=== PATIENT | female | born 1995 | race Hispanic/Latino ===

== ENCOUNTER 2024-09-24 00:54 | Emergency (ER) | payer SELFPAY ==
[2024-09-24 01:00] VITALS: BP 141/79; PULSE 91; O2SAT 100
[2024-09-24 01:02] VITALS: BP 138/82; PULSE 91; RESP 16; TEMP 36.8; O2SAT 100; BMI 38.0
--- NOTE | 2024-09-24 01:04 | EKG_ITS ---
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
--- NOTE | 2024-09-24 01:10 | ED.CHESTPAIN ---
HPI - Chest Pain General Chief Complaint: Chest Pain Stated Complaint: chest pain Time Seen by Provider: 09/24/24 01:10 Source: patient Mode of arrival: Ambulatory Limitations: no limitations History of Present Illness HPI narrative: Patient is a 28-year-old female no significant past medical history presents into the ED for evaluation of left-sided chest pain, states it started spontaneously at around 11:00 a.m. when she got out of the shower, nothing making it better or worse states it is completely resolved at this time but was worried so decided come into the ED for further evaluation treatment. No trauma no falls not complaining of any other symptoms at this time. Review of Systems Review of Systems Narrative: General: Denies fever, chills, weight loss HEENT: Denies headache, eye drainage, eye irritation, head trauma, sore throat, voice change Cardiovascular: Positive chest pain, denies, palpitations, shortness of breath, tachycardia Respiratory: Denies any shortness of breath, cough, wheeze, stridor GI/: Denies any abdominal pain, nausea, vomiting, diarrhea, bright red blood per rectum, melanotic stools, urinary frequency, urinary retention, dysuria, hematuria MSK: Denies any joint pain, muscle pains, swelling Skin: Denies any rashes, lesions, discoloration Neuro: Denies any headache, lightheadedness, dizziness, fainting, weakness Psych: Denies SI/HI Patient History Social History Smoking Status: Current every day smoker Smoking Status: Current every day smoker Substance Use Type: does not use Exam Narrative Exam Narrative: General: Cooperative, comfortable, well-developed, not in acute distress HEENT: Normocephalic, atraumatic, PERRLA, normal sclera, eyelids normal, Neck: Active full range of motion, atraumatic Chest: Normal to inspection, negative crepitus, no overlying erythema ecchymosis Respiratory: Normal respiratory effort, not in acute respiratory distress, clear to auscultation bilaterally negative cough, wheeze, tachypnea, rhonchi, rales Cardiology: Regular rate rhythm negative gallop, murmur, rubs GI/: Normal to inspection, soft, nonrigid, no tenderness to palpation, exam deferred MSK: Full range of active range of motion of all 4 extremities, atraumatic Skin: No rashes lesions noted Neuro: Alert awake oriented x3, moves all 4 extremities spontaneously, cranial nerves intact, able to answer all questions appropriately follows commands appropriately Psych: Cooperative, negative suicidal or homicidal ideations Initial Vital Signs Initial Vital Signs: Vital Signs Temperature 98.2 F 09/24/24 01:02 Pulse Rate 91 H 09/24/24 01:02 Respiratory Rate 16 09/24/24 01:02 Blood Pressure 138/82 09/24/24 01:02 Pulse Oximetry 100 09/24/24 01:02 Oxygen Delivery Method Room Air 09/24/24 01:02 Course Orders Ordered: ED Orders 09/24/24 01:02 EKG-12 Lead Stat 09/24/24 01:15 XR chest 1V Stat 09/24/24 01:35 Complete Blood Count AUTO DIFF Stat Comprehensive Metabolic Panel Stat Lipase Stat Troponin & CK Cardiac Panel Stat Discontinued Medications Aspirin (Aspirin 81 Mg Chew Tab) 324 mg PO NOW ONE Stop: 09/24/24 01:16 Vital Signs Vital signs: Vital Signs - 8 hr 09/24/24 01:02 Temperature 98.2 F Pulse Rate 91 H Respiratory Rate 16 Blood Pressure 138/82 Pulse Oximetry 100 Oxygen Delivery Method Room Air MDM - Chest Pain Differential Diagnosis Differential diagnosis: Likely st elevation myocardial infarction, costochondritis, chest pain and other (Electrolyte abnormality, pneumonia) Lab Data 09/24/24 01:35 09/24/24 01:35 Labs: Lab Results 09/24/24 Range/Units 01:35 WBC 11.1 H (4.5-11.0) X10^3/uL RBC 4.93 (4.0-5.2) X10^6/uL Hgb 13.0 (12.0-16.0) g/dL Hct 39.6 (36-46) % MCV 80.4 (80-100) fL MCH 26.3 (26-34) PG MCHC 32.8 (30-36) % RDW 14.5 (11.6-14.8) % Plt Count 242 (150-400) X10^3/uL Neut % (Auto) 59.5 (50-75) % Lymph % (Auto) 33.7 (25-40) % [place]ley % (Auto) 5.6 (3-14) % Eos % (Auto) 0.9 L (2-4) % Baso % (Auto) 0.3 (0-2) % Neut # (Auto) 6600 (9543-9589) /uL Lymph # (Auto) 3800 (6718-0050) /uL Donley # (Auto) 600 (0-900) /uL Eos # (Auto) 100 (0-450) /uL Baso # (Auto) 0 (0-100) /uL Sodium 137 (137-145) mmol/L Potassium 3.7 (3.4-5.1) mmol/L Chloride 102 (98-107) mmol/L Carbon Dioxide 27 (22-32) mmol/L BUN 15 (7-17) mg/dL Creatinine 0.78 (0.52-1.04) mg/dL Estimated GFR > 60 (>60) mL/min BUN/Creatinine Ratio 19.2 (6-22) Glucose 110 H (70-100) mg/dL Calcium 9.5 (8.4-10.2) mg/dL Total Bilirubin 0.3 (0.2-1.3) mg/dL AST 22 (14-36) IU/L ALT 24 (<35) IU/L Alkaline Phosphatase 84 (38-126) U/L Total Creatine Kinase 64 (30-135) U/L Troponin I < 0.012 (0.01-0.034) ng/mL Total Protein 7.6 (6.3-8.2) g/dL Albumin 4.4 (3.5-5.0) g/dL Globulin 3.2 (1.7-4.1) g/dL Albumin/Globulin Ratio 1.4 (1.0-2.8) Lipase 53 (23-300) U/L Point of Care Testing Test Results Negative Urine Dip Bedside Urine Glucose Negative Bedside Urine Bilirubin - Negative Bedside Urine Ketone - Negative Urine Specific [place] 1.005 Bedside Urine Occult Blood - Negative Bedside Urine pH 7 Bedside Urine Protein - Negative Bedside Urine Urobilinogen - Negative Bedside Urine Nitrite - Negative Bedside Urine Leukocytes - Negative Esterase Imaging Data Chest x-ray: Radiologist's Impression: [address] [address] XRay Report Signed Patient: Glenda Dunham MR#: [id number] : 1995 Acct:[id number] Age/Sex: 28 / F Date of Service: 09/24/24 Loc: ED Accession Number: [id number] Procedure: XR chest 1V Ordering Provider: Natanael Figueroa D.O. PROCEDURE: XR CHEST 1V INDICATIONS: chest pain TECHNIQUE: One view of the chest was acquired. COMPARISON: None. FINDINGS: Surgical changes and devices: None. Lungs and pleura: Lungs are clear. No pleural effusions or pneumothorax. Mediastinum: Mediastinal contours appear normal. Heart size is normal. Bones and chest wall: No suspicious bony lesions. Overlying soft tissues appear unremarkable. IMPRESSION: No acute cardiopulmonary pathology. ECG Data Interpretation: EKG interpreted by ED physician sinus at 90 beats per minute, QTC 428, normal axis, nonspecific ST changes, no STEMI MDM Narrative Medical decision making narrative: Patient is a 28-year-old female with no significant past medical history presented for left-sided chest pain started at 11:00 p.m. earlier today. Describes it as sharp and shooting nothing making it better or worse pain has completely resolved at this time. Patient with a heart score of 0, patient with EKG nonischemic, troponin negative, patient will be safe for discharge home with outpatient follow up. She was instructed to follow up with primary care and Cardiology in outpatient setting, she verbalized understanding of this strict return precautions given she verbalized understanding of this and agrees to being discharged home with outpatient follow up. Discharge Plan Departure Patient Disposition: Home Clinical Impression: Chest pain Referrals: Baldemar Hendricks MD [Primary Care Provider] - Stand Alone Forms: Patient Portal/API/Survey
--- NOTE | 2024-09-24 01:15 | DI.RAD.S_ITS ---
PROCEDURE: XR CHEST 1V INDICATIONS: chest pain TECHNIQUE: One view of the chest was acquired. COMPARISON: None. FINDINGS: Surgical changes and devices: None. Lungs and pleura: Lungs are clear. No pleural effusions or pneumothorax. Mediastinum: Mediastinal contours appear normal. Heart size is normal. Bones and chest wall: No suspicious bony lesions. Overlying soft tissues appear unremarkable. IMPRESSION: No acute cardiopulmonary pathology. Dictated by: Trent Akers M.D. on 09/24/2024 at 1:58 Approved by: Trent Akers M.D. on 09/24/2024 at 1:58
[2024-09-24 01:23] VITALS: BP 135/61; PULSE 77; O2SAT 99
[2024-09-24 01:30] VITALS: BP 125/60; PULSE 84; O2SAT 99
[2024-09-24 01:47] LABS: Add Manual Diff / Slide Review NO; Basophils Absolute Auto 0 /uL (0-100); Basophils Percent Auto 0.3 % (0-2); Eosinophils Absolute Auto 100 /uL (0-450); Eosinophils Percent Auto 0.9 % (2-4); Hematocrit 39.6 % (36-46); Lymphocytes Absolute Auto 3800 /uL (1100-4500); Lymphocytes Percent Auto 33.7 % (25-40); Mean Corpuscular HGB Conc 32.8 % (30-36); Mean Corpuscular Hemoglobin 26.3 PG (26-34); Mean Corpuscular Volume 80.4 fL (80-100); Monocytes Absolute Auto 600 /uL (0-900); Monocytes Percent Auto 5.6 % (3-14); Neutrophils Absolute Auto 6600 /uL (1500-7000); Neutrophils Percent Auto 59.5 % (50-75); Platelet Count 242 X10^3/uL (150-400); Red Blood Cell Count 4.93 X10^6/uL (4.0-5.2); Red Cell Distribution Width 14.5 % (11.6-14.8); White Blood Cell Count 11.1 X10^3/uL (4.5-11.0)
[2024-09-24 01:58] LABS: Alanine Aminotransferase 24 IU/L (<35); Albumin 4.4 g/dL (3.5-5.0); Albumin Globulin Ratio 1.4 (1.0-2.8); Alkaline Phosphatase 84 U/L (38-126); Aspartate Aminotransferase 22 IU/L (14-36); BUN Creatinine Ratio 19.2 (6-22); Bilirubin Total 0.3 mg/dL (0.2-1.3); Blood Urea Nitrogen 15 mg/dL (7-17); Calcium 9.5 mg/dL (8.4-10.2); Carbon Dioxide 27 mmol/L (22-32); Chloride 102 mmol/L (98-107); Creatine Kinase 64 U/L (30-135); Estimated Glomerular Filt Rate > 60 mL/min (>60); Globulin 3.2 g/dL (1.7-4.1); Glucose 110 mg/dL (70-100); HEMOLYSIS < 15 (0-50); Lipase 53 U/L (23-300); Potassium 3.7 mmol/L (3.4-5.1); Sodium 137 mmol/L (137-145); Total Protein 7.6 g/dL (6.3-8.2)
[2024-09-24 02:10] LABS: Troponin I < 0.012 ng/mL (0.01-0.034)
[2024-09-24 02:26] VITALS: BP 126/66; PULSE 96; RESP 18; O2SAT 98
== END 2024-09-24 02:30 | disposition home or self-care (01) ==
PROVIDERS: Emergency Provider Student in an Organized Health Care Education/Training Program; PCP Family Medicine
DX: R07.9 Chest pain, unspecified (principal)
CPT/HCPCS: 36415; 71045; 80053; 81003; 81025; 82550; 83690; 84484; 85025; 93005; 93010; 99283; 99284

== ENCOUNTER 2025-04-02 15:27 | Emergency (ER) | payer SELFPAY ==
[2025-04-02] VITALS (9 sets, daily range): BP systolic 149–164; BP diastolic 77–102; PULSE 83–103; RESP 16–17; TEMP 36.6; O2SAT 90–100; BMI 38.0
--- NOTE | 2025-04-02 23:25 | ED.HA ---
HPI - Headache General Chief Complaint: Headache Stated Complaint: MARIEE and neck px, X2mos Time Seen by Provider: 04/02/25 22:41 Mode of arrival: Ambulatory History of Present Illness HPI Narrative: Patient is a healthy 29-year-old female presenting today with ongoing headache for the last 2 months. He says she gets 1 every week hepatitis in the day sometimes it is at night. It sounds like it is a dull ache usually takes Tylenol. No nausea no vomiting no numbness no tingling no weakness no dizziness. Reports that she was has a her menstrual cycle does not think that she is . She went to the chiropractor and denies any worsening headache or new symptoms after the chiropractor but reports that it is not helping her headache. She is trying to get into a primary care provider but not able to do so. She denies any alcohol or drug use. She reports that she was overall just set up having headaches and came to the emergency department tonight Related Data Home Medications Medication Instructions Recorded Confirmed No Known Home Medications 04/02/25 04/02/25 Allergies Allergy/AdvReac Type Severity Reaction Status Date / Time No Known Drug Allergies Allergy Verified 04/02/25 16:12 Patient History Social History Smoking Status: Never smoker Smoking Status: Never smoker Exam Initial Vital Signs Initial Vital Signs: Vital Signs Temperature 98 F 04/02/25 16:07 Pulse Rate 83 04/02/25 16:07 Respiratory Rate 17 04/02/25 16:07 Pulse Oximetry 100 04/02/25 16:07 Oxygen Delivery Method Room Air 04/02/25 16:07 GENERAL: Alert well-appearing 21-year-old female and in no acute distress. HEENT: Head atraumatic,EOMI, pupils reactive, face symmetric, moist mucous membranes CARDIOVASCULAR: Regular rate and rhythm without murmurs, rubs or gallops. RESPIRATORY: Breath sounds equal bilaterally, no wheezes rales or rhonchi. ABDOMEN: Soft, nontender. Normoactive bowel sounds all 4 quadrants. No guarding or rebound. EXTREMITIES: Normal range of motion, no clubbing or edema. Neurovascularly intact NEUROLOGICAL: Alert and oriented x4.Normal gait and speech. Cranial nerves II through XII grossly intact. Good [id number]-crmo, good smdr-cv-[id number], strength equal bilaterally, no dysarthria or aphasia, sensation in tact to soft touch bilaterally, no visual changes, no facial droop SKIN: Warm, dry, no laceration, no petechiae, no rashes or lesions. Scores NIH Stroke Scale Level of Conciousness: Alert, keenly responsive Ask month/age: Answers both questions correctly. Open/close eyes, close hand: Performs both tasks correctly Best gaze horizontal: Normal Visual riley: No visual loss Facial palsy: Normal symetrical movement Left arm drift: No drift for full 10 sec Right arm drift: No drift for full 10 sec Left leg drift: No drift for full 5 sec Right leg drift: No drift for full 5 sec Limb ataxia: Absent Sensory on face/arms/legs: Normal, no sensory loss Best language: No aphasia, normal Dysarthria: Normal Extinction or inattention: No abnormality Total NIH Stroke scale score: 0 Course Orders Ordered: ED Orders 04/02/25 23:31 CT head/brain wo con Stat Discontinued Medications Ketorolac Tromethamine (Ketorolac 30 Mg/Ml Vial) 30 mg IM NOW ONE Stop: 04/02/25 23:32 Last Admin: 04/02/25 23:44 Dose: 30 mg Documented By: RONIT Vital Signs Vital signs: Vital Signs - 8 hr 04/02/25 21:04 04/02/25 21:05 04/02/25 21:05 Pulse Rate 102 H 98 H Respiratory Rate Blood Pressure 164/102 H Pulse Oximetry 90 L 100 04/02/25 21:30 04/02/25 21:30 04/02/25 22:00 Pulse Rate 92 H 103 H Respiratory Rate 16 Blood Pressure 155/79 H Pulse Oximetry 99 99 04/02/25 22:00 04/02/25 23:04 04/02/25 23:05 Pulse Rate 87 87 Respiratory Rate Blood Pressure 152/80 H Pulse Oximetry 100 100 04/02/25 23:05 04/02/25 23:30 04/02/25 23:30 Pulse Rate 88 Respiratory Rate 16 16 Blood Pressure 150/88 H 149/82 H Pulse Oximetry 99 04/02/25 23:56 04/02/25 23:56 04/03/25 00:00 Pulse Rate 96 H 97 H Respiratory Rate Blood Pressure 157/77 H Pulse Oximetry 98 100 04/03/25 00:00 04/03/25 00:30 04/03/25 00:30 Pulse Rate 94 H Respiratory Rate 16 Blood Pressure 161/79 H 160/77 H Pulse Oximetry 98 [facility] [place] - Headache Lab Data Labs: Point of Care Testing Test Results Negative Urine Dip Bedside Urine Glucose Negative Bedside Urine Bilirubin - Negative Bedside Urine Ketone - Negative Urine Specific [place] 1.000 Bedside Urine Occult Blood - Negative Bedside Urine pH 6.5 Bedside Urine Protein - Negative Bedside Urine Urobilinogen - Negative Bedside Urine Nitrite - Negative Bedside Urine Leukocytes - Negative Esterase Imaging Data CT scan - head: Radiologist's Impression: PROCEDURE: CT HEAD/BRAIN WO CON INDICATIONS: headache x 2 months TECHNIQUE: Noncontrast 4.5 mm thick angled axial sections acquired from the foramen magnum to the vertex, with coronal and sagittal reformats. For radiation dose reduction, the following was used: automated exposure control, adjustment of mA and/or kV according to patient size. COMPARISON: None. FINDINGS: Image quality: Diagnostic. CSF spaces: Basal cisterns are patent. No extra-axial fluid collections. Ventricles are normal in size and shape. Brain: No midline shift. No intracranial mass effect or hemorrhage. Andino-white matter interface is normal. Skull and face: Calvarium and visualized facial bones are intact, without suspicious lesions. Sinuses: Mastoids are clear. Left maxillary sinus appears atrophic with mild mucosal thickening. IMPRESSION: 1. No acute intracranial pathology. 2. Partially visualized left maxillary sinus appears atrophic with mucosal thickening. Findings could be due to chronic sinusitis. -Sinus CT would be helpful for follow-up characterization. Dictated by: Nate Deluca M.D. on 04/03/2025 at 0:09 Approved by: Nate Deluca M.D. on 04/03/2025 at 0:13 [facility] [place] Narrative Medical decision making narrative: Patient is a healthy 29-year-old female presenting today with ongoing headache. No neurologic deficits she overall appears well afebrile no concern for meningitis. She was having headaches prior to the chiropractor no concern for carotid dissection she has no tingling numbness or other symptoms need for angio. CT head is negative for intracranial hemorrhage mass. It does show possible chronic sinusitis Patient does not clinically have sinusitis she was afebrile no need for antibiotics She received Toradol pain has improved slightly. At this time recommend outpatient follow-up encouraged journaling of headaches to look for trends no need for any further workup she appears well nontoxic no meningeal signs. Discharge Plan Departure Patient Disposition: Home Clinical Impression: Headache Instructions: DI for Headache Activity Restrictions/Additional Instructions: *You have been diagnosed with headache *What to do: At this time I do encourage you to keep a journal of your headaches of what you 8 what you take wear your to see if there is any kind of pattern. Include menstrual cycle as well *Continue to take medications as directed Motrin 600 mg every 6 hours for tagg-nf-izwdobuo pain Tylenol 1000 mg every 6 hours for utbe-pb-wyyyxlou pain *Follow up with your primary care provider in 2-3 days or call [phone] *Return to ER if you should have increasing headache numbness tingling weakness or any new, worsening or concerning symptoms Prescriptions: No Action No Known Home Medications Referrals: Miscellaneous,Doctor, MD [Primary Care Provider] - Stand Alone Forms: Patient Portal/API/Survey
--- NOTE | 2025-04-02 23:31 | DI.CT.S_ITS ---
PROCEDURE: CT HEAD/BRAIN WO CON INDICATIONS: headache x 2 months TECHNIQUE: Noncontrast 4.5 mm thick angled axial sections acquired from the foramen magnum to the vertex, with coronal and sagittal reformats. For radiation dose reduction, the following was used: automated exposure control, adjustment of mA and/or kV according to patient size. COMPARISON: None. FINDINGS: Image quality: Diagnostic. CSF spaces: Basal cisterns are patent. No extra-axial fluid collections. Ventricles are normal in size and shape. Brain: No midline shift. No intracranial mass effect or hemorrhage. Andino-white matter interface is normal. Skull and face: Calvarium and visualized facial bones are intact, without suspicious lesions. Sinuses: Mastoids are clear. Left maxillary sinus appears atrophic with mild mucosal thickening. IMPRESSION: 1. No acute intracranial pathology. 2. Partially visualized left maxillary sinus appears atrophic with mucosal thickening. Findings could be due to chronic sinusitis. -Sinus CT would be helpful for follow-up characterization. Dictated by: Nate Deluca M.D. on 04/03/2025 at 0:09 Approved by: Nate Deluca M.D. on 04/03/2025 at 0:13
[2025-04-02] MEDS: KETOROLAC 30 MG/ML VIAL IM (23:44)
[2025-04-03] VITALS: BP 161/79; PULSE 97; O2SAT 100
[2025-04-03 00:30] VITALS: BP 160/77; PULSE 94; RESP 16; O2SAT 98
== END 2025-04-03 00:45 | disposition home or self-care (01) ==
PROVIDERS: Emergency Provider Emergency Medicine
DX: R51.9 Headache, unspecified (principal)
CPT/HCPCS: 70450; 81003; 81025; 99283; 99284; J1885